=== PATIENT | female | born 1950 | race African-American/Black ===

== ENCOUNTER 2016-06-21 17:46 | Outpatient (CLI) | payer MEDICARE ==
[2016-06-21 19:03] LABS: #Basophils 0.1 thou/uL (0.0-0.2); #Eosinphils 0.1 thou/uL (0.0-0.7); #Lymphocytes 2.2 thou/uL (1.20-3.40); #Monocytes 0.5 thou/uL (0.11-0.59); #Neutrophils 2.4 thou/uL (1.40-6.50); %Basophils 1.2 % (0.0-1.0); %Eosinophils 1.6 % (0.0-10.0); %Lymphocytes 41.7 % (21.0-51.0); %Monocytes 9.6 % (0.0-10.0); %Neutrophils 45.9 % (42.0-75.0); Mean Corpuscular HGB CONC 32.1 g/dL (32.0-36.0); Mean Corpuscular Volume 87.3 fl (81.0-99.0); Mean Platelet Volume 7.3 fL (7.4-10.4); Platelet Count 206 thou/uL (130-400); RBC Distribution Width 13.4 % (11.5-14.5); Red Blood Cell (RBC) Count 4.28 mill/uL (4.20-5.40); White Blood Cell (WBC) Count 5.2 thou/uL (4.8-10.8)
[2016-06-21 19:30] LABS: ALT (SGPT) 11 U/L (0-55); AST (SGOT) 15 U/L (5-34); Alkaline Phosphatase 99 U/L (40-150); Anion Gap 13 mmol/L (10-20); BUN (Urea Nitrogen) 18 mg/dL (9.8-20.1); Bilirubin, Direct 0.2 mg/dL (0.1-0.3); Bilirubin, Total 0.4 mg/dL (0.2-1.2); Calc. Creatinine Clearance 0 mL/min (70-130); Carbon Dioxide 29 mmol/L (23-31); Cardiac Risk 2.2 (Less than 4.5); Chloride 105 mmol/L (98-107); Cholesterol 116 mg/dL (< 200 Desired); Estimated GFR-MDRD 52; Glucose 95 mg/dL (80-115); HDL Cholesterol 52 mg/dL (>60 Neg Risk); LDL Cholesterol, Calculated 46 mg/dL; Potassium 3.9 mmol/L (3.5-5.1); Protein, Total 7.1 g/dL (5.8-8.1); Sodium 143 mmol/L (136-145); Triglycerides 88 mg/dL (Less than 150)
--- NOTE | 2016-06-21 19:39 | RAD ---
THREE VIEWS RIGHT SHOULDER: History: Unknown pain. Comparison: None. FINDINGS: Sclerosis of the greater tuberosity likely due to rotator cuff tendinopathy. Degenerative changes o f the right shoulder joint with osteophyte formation. Near complete fusion of the right AC joint. No dislocation or fracture. IMPRESSION: Degenerative changes as above. MRI may be beneficial. POS: DELMIS
== END 2016-06-21 17:47 | disposition home or self-care (01) ==
LOC: MADLAB 17:46
DX: E78.00 Pure hypercholesterolemia, unspecified (principal); R53.83 Other fatigue; R42 Dizziness and giddiness; I48.91 Unspecified atrial fibrillation; M25.519 Pain in unspecified shoulder; M19.011 Primary osteoarthritis, right shoulder
CPT/HCPCS: 36415; 80048; 80061; 80076; 85025

== ENCOUNTER 2017-10-01 09:45 | Emergency (ER) | payer MEDICARE | END 2017-10-01 11:20 | disposition home or self-care (01) | LOC: MADERS 09:45 | DX: T63.301A Toxic effect of unspecified spider venom, accidental (unintentional), initial encounter (principal) | CPT/HCPCS: 99282 ==

== ENCOUNTER 2018-07-02 12:20 | Emergency (ER) | payer MEDICARE ==
[2018-07-02] MEDS ORDERED: Morphine 10 MG/ML VIAL ONE (12:43)
== END 2018-07-02 14:00 | disposition home or self-care (01) ==
LOC: MADERS 12:20
DX: M54.5 Low back pain (principal); E11.9 Type 2 diabetes mellitus without complications; I10 Essential (primary) hypertension; Z79.899 Other long term (current) drug therapy; Z79.891 Long term (current) use of opiate analgesic
CPT/HCPCS: 96372; J2270

== ENCOUNTER 2018-07-24 00:48 | Emergency (ER) | payer MEDICARE ==
[2018-07-24] MEDS ORDERED: Acetaminophen 325 MG TAB ONE (01:21)
[2018-07-24] MEDS ORDERED: HYDROcodone/Acetaminophen 5/325 mg Tablet ONE (01:21)
[2018-07-24] MEDS ORDERED: Diazepam 5 MG TAB ONE (01:21)
== END 2018-07-24 04:36 | disposition home or self-care (01) ==
LOC: MADERS 00:48
DX: M79.18 Myalgia, other site (principal); E78.5 Hyperlipidemia, unspecified; I10 Essential (primary) hypertension; Z79.899 Other long term (current) drug therapy; Z79.01 Long term (current) use of anticoagulants
CPT/HCPCS: 99282; 99283

== ENCOUNTER 2018-07-24 03:37 | Emergency (ER) | payer MEDICARE | END 2018-07-24 07:06 | disposition home or self-care (01) | LOC: MADERS 03:37 | DX: Z01.30 Encounter for examination of blood pressure without abnormal findings (principal); E78.5 Hyperlipidemia, unspecified; I10 Essential (primary) hypertension; Z79.899 Other long term (current) drug therapy; Z79.01 Long term (current) use of anticoagulants ==

== ENCOUNTER 2019-05-17 16:11 | Emergency (ER) | payer MEDICARE ==
[2019-05-17] MEDS ORDERED: Acetaminophen 500 MG TAB ONE (16:56)
[2019-05-17] MEDS ORDERED: Oseltamivir 75 MG CAP ONE (17:20)
== END 2019-05-17 17:24 | disposition home or self-care (01) ==
LOC: MADERS 16:11
DX: J11.1 Influenza due to unidentified influenza virus with other respiratory manifestations (principal); E78.5 Hyperlipidemia, unspecified; I10 Essential (primary) hypertension; Z79.899 Other long term (current) drug therapy
CPT/HCPCS: 87804; 99283

== ENCOUNTER 2020-02-03 07:03 | Emergency (ER) | payer MEDICARE ==
--- NOTE | 2020-02-03 10:18 | RAD ---
LEFT KNEE RADIOGRAPHS 4 VIEWS: DATE: 02/03/2020. PROVIDED CLINICAL HISTORY: Pain status post injury. FINDINGS: Degenerative changes are seen. Reticulation of the subcutaneous adipose layer at the anterior aspect of the knee suggests bruising or edema. Osteophyte formation is seen about the knee. There is a qu estioned area f cortical irregularity and subjacent linear lucency at the lateral aspect of the later al femoral epicondyle on the externally rotated oblique view that may reflect fracture. No significa nt knee joint capsular distention is evident. IMPRESSION: Nondisplaced fracture versus artifact at the lateral aspect of the distal femur as described. POS: SAL
== END 2020-02-03 08:12 | disposition home or self-care (01) ==
LOC: MADERS 07:03
DX: S80.02XA Contusion of left knee, initial encounter (principal); M25.462 Effusion, left knee; E78.5 Hyperlipidemia, unspecified; E78.00 Pure hypercholesterolemia, unspecified; I10 Essential (primary) hypertension; I48.91 Unspecified atrial fibrillation; Z79.899 Other long term (current) drug therapy; W18.30XA Fall on same level, unspecified, initial encounter

== ENCOUNTER 2020-02-06 12:29 | Emergency (ER) | payer MEDICARE ==
--- NOTE | 2020-02-06 14:18 | CT ---
Exam: Left knee CT without contrast HISTORY: Fall. Trauma. Pain. Abnormal finding on recent left COMPARISON: None Correlation: The left knee radiograph series 02/03/2020 FINDINGS: There is prepatellar soft tissue swelling. There is subcutaneous edema. No evidence of a loculated fl uid collection. There does appear to be a hematoma anterior soft tissues along the inferior aspect of patella.. No evidence of a Roe's cyst. There is a small joint effusion. Fluid is slightly complex suggesting a possible component of hemorrh age. Sagittal images demonstrate a normal-appearing posterior cruciate ligaments. Normal appearing anterio r cruciate ligament is not appreciated. Patella does not appear to be subluxed. There are moderate degenerative change of the patellofemoral compartment. Moderate degenerative change in medial and lateral compartment. Contour of bilateral femoral condyles are maintained. There is prominent osteophyte formation. The medial tibial plateau is maintained. No fracture. There is sclerosis along the lateral tibial plateau compatible with a insufficiency frac ture. There is prominent osteophyte formation. Finding noted on recent radiograph is felt to represent a anterior lateral osteophyte. No acute femoral condyle fractures are appreciated. IMPRESSION: 1. Small amount of hemorrhagic fluid in the joint space. There is a hematoma involving the soft tissu es along the inferior aspect of the patella. 2. Insufficiency fracture involving the lateral tibial plateau. 3. Prominent osteophyte formation at the level of femoral condyles and tibial plateau. Osteophytes ar e favored to represent to the finding noted on recent radiograph.
== END 2020-02-06 14:45 | disposition home or self-care (01) ==
LOC: MADERS 12:29
DX: S82.142A Displaced bicondylar fracture of left tibia, initial encounter for closed fracture (principal); E78.5 Hyperlipidemia, unspecified; E78.00 Pure hypercholesterolemia, unspecified; I48.91 Unspecified atrial fibrillation; I10 Essential (primary) hypertension; I25.10 Atherosclerotic heart disease of native coronary artery without angina pectoris; Z79.891 Long term (current) use of opiate analgesic; Z79.01 Long term (current) use of anticoagulants; Z79.899 Other long term (current) drug therapy; X58.XXXA Exposure to other specified factors, initial encounter; W19.XXXA Unspecified fall, initial encounter

== ENCOUNTER 2020-03-19 12:41 | Emergency (ER) | payer MEDICARE ==
[2020-03-20 08:22] LABS: SARS-CoV-2 MS2 Positive; SARS-CoV-2 N Gene Negative; SARS-CoV-2 S Gene Negative; SARS-CoV-2 by NAA Not Detected (NotDetected); SARS-CoV-2 orf1ab Negative
== END 2020-03-19 13:49 | disposition home or self-care (01) ==
LOC: MADERS 12:41
DX: J02.9 Acute pharyngitis, unspecified (principal); Z20.828 Contact with and (suspected) exposure to other viral communicable diseases; E78.5 Hyperlipidemia, unspecified; E78.00 Pure hypercholesterolemia, unspecified; I10 Essential (primary) hypertension; I48.91 Unspecified atrial fibrillation
CPT/HCPCS: 87635; 99283; U0003

== ENCOUNTER 2020-04-02 16:23 | Emergency (ER) | payer MEDICARE | END 2020-04-02 17:20 | disposition home or self-care (01) | LOC: MADERS 16:23 | DX: Z02.89 Encounter for other administrative examinations (principal); E78.5 Hyperlipidemia, unspecified; E78.00 Pure hypercholesterolemia, unspecified; I48.91 Unspecified atrial fibrillation; I25.10 Atherosclerotic heart disease of native coronary artery without angina pectoris; I10 Essential (primary) hypertension | CPT/HCPCS: 99283 ==

== ENCOUNTER 2022-03-30 19:14 | Emergency (ER) | payer MEDICARE ==
[2022-03-30] MEDS ORDERED: methylPREDNISolone Sod Succ/PF 125 MG/2 ML VIAL ONE (19:44)
[2022-03-30 20:00] LABS: Band 1 % (5-11); Eosinophils 1 % (0-10); Hemoglobin 13.1 g/dL (12.0-16.0); Lymphocytes 12 % (21-51); MDiff Complete? YES; Mean Corpuscular HGB CONC 32.7 g/dL (32.0-36.0); Mean Corpuscular Hemoglobin 28.7 pg (27.0-31.0); Mean Corpuscular Volume 87.9 fl (78.0-98.0); Mean Platelet Volume 6.5 fL (7.4-10.4); Monocytes 8 % (0-10); Neutrophil 78 % (42-75); Platelet Count 223 10x3/uL (130-400); Platelet Morphology Comment Appears Adequate; RBC Distribution Width 12.6 % (11.5-14.5); RBC Morphology Normal; Red Blood Cell (RBC) Count 4.56 mill/uL (4.20-5.40); White Blood Cell (WBC) Count 6.6 10x3/uL (4.8-10.8)
[2022-03-30 20:14] LABS: ALT (SGPT) 11 U/L (8-55); AST (SGOT) 16 U/L (5-34); Albumin 4.3 g/dL (3.4-4.8); Alkaline Phosphatase 77 U/L (40-110); Anion Gap 19 mmol/L (10-20); BUN (Urea Nitrogen) 9 mg/dL (9.8-20.1); Bilirubin, Total 0.6 mg/dL (0.2-1.2); Calc. Creatinine Clearance 0 mL/min (70-130); Calcium 9.1 mg/dL (7.8-10.44); Carbon Dioxide 24 mmol/L (23-31); Chloride 101 mmol/L (98-107); Estimated GFR 47; Globulin 2.9 g/dL (2.4-3.5); Glucose 132 mg/dL (83-110); Potassium 3.5 mmol/L (3.5-5.1); Protein, Total 7.2 g/dL (5.8-8.1); Sodium 140 mmol/L (136-145)
[2022-03-30 20:25] LABS: SARS-CoV-2 NAA Rapid Test DETECTED (NotDetected)
[2022-03-30] MEDS ORDERED: Diltiazem HCl SR 60 mg Capsule PO SCH (22:00)
[2022-03-31] MEDS ORDERED: Acetaminophen 325 MG TAB ONE (01:43)
== END 2022-03-31 07:12 | disposition home or self-care (01) ==
LOC: MADERS 19:14
DX: U07.1 COVID-19 (principal); I48.20 Chronic atrial fibrillation, unspecified; E78.00 Pure hypercholesterolemia, unspecified; I10 Essential (primary) hypertension; I25.10 Atherosclerotic heart disease of native coronary artery without angina pectoris; Z79.899 Other long term (current) drug therapy
CPT/HCPCS: 71045; 80053; 83605; 83880; 84484; 85025; 93005; 96374; 96375; J2930; J7620

== ENCOUNTER 2022-04-05 15:38 | Emergency (ER) | payer MEDICARE ==
[2022-04-05 16:30] LABS: Hemoglobin 13.8 g/dL (12.0-16.0); Lymphocytes 38 % (21-51); MDiff Complete? YES; Mean Corpuscular HGB CONC 32.4 g/dL (32.0-36.0); Mean Corpuscular Hemoglobin 28.1 pg (27.0-31.0); Mean Corpuscular Volume 86.6 fl (78.0-98.0); Mean Platelet Volume 6.7 fL (7.4-10.4); Monocytes 3 % (0-10); Neutrophil 59 % (42-75); Platelet Count 216 10x3/uL (130-400); RBC Distribution Width 11.9 % (11.5-14.5); Red Blood Cell (RBC) Count 4.91 mill/uL (4.20-5.40); White Blood Cell (WBC) Count 5.6 10x3/uL (4.8-10.8)
[2022-04-05 16:36] LABS: ALT (SGPT) 13 U/L (8-55); AST (SGOT) 18 U/L (5-34); Albumin 3.9 g/dL (3.4-4.8); Alkaline Phosphatase 57 U/L (40-110); Anion Gap 13 mmol/L (10-20); BUN (Urea Nitrogen) 11 mg/dL (9.8-20.1); Bilirubin, Total 0.8 mg/dL (0.2-1.2); Calc. Creatinine Clearance 0 mL/min (70-130); Calcium 9.3 mg/dL (7.8-10.44); Carbon Dioxide 30 mmol/L (23-31); Chloride 99 mmol/L (98-107); Estimated GFR 36; Globulin 3.1 g/dL (2.4-3.5); Glucose 132 mg/dL (83-110); Magnesium 1.9 mg/dL (1.6-2.6); Potassium 2.9 mmol/L (3.5-5.1); Sodium 139 mmol/L (136-145)
[2022-04-05] MEDS ORDERED: Potassium Chloride 20 MEQ TAB ONE (17:06)
== END 2022-04-05 18:15 | disposition home or self-care (01) ==
LOC: MADERS 15:38
DX: R42 Dizziness and giddiness (principal); E78.5 Hyperlipidemia, unspecified; E78.00 Pure hypercholesterolemia, unspecified; I10 Essential (primary) hypertension; I48.91 Unspecified atrial fibrillation; I25.10 Atherosclerotic heart disease of native coronary artery without angina pectoris; Z79.01 Long term (current) use of anticoagulants
CPT/HCPCS: 36415; 80053; 83605; 83735; 84443; 85025; 87040; 93005; 94760

== ENCOUNTER 2023-01-14 20:24 | Emergency (ER) | payer MEDICARE ==
[2023-01-14] MEDS ORDERED: Aspirin Chewable 81 MG TAB ONE (20:53)
[2023-01-14 21:08] LABS: Band 2 % (5-11); Hematocrit 35.8 % (36.0-47.0); Hemoglobin 11.8 g/dL (12.0-16.0); Lymphocytes 42 % (21-51); MDiff Complete? YES; Mean Corpuscular HGB CONC 32.8 g/dL (32.0-36.0); Mean Corpuscular Hemoglobin 29.2 pg (27.0-31.0); Mean Corpuscular Volume 88.8 fl (78.0-98.0); Mean Platelet Volume 7.8 fL (7.4-10.4); Monocytes 10 % (0-10); Neutrophil 46 % (42-75); Platelet Adequacy Comment Appears Adequate; Platelet Count 227 10x3/uL (130-400); RBC Distribution Width 14.1 % (11.5-14.5); Red Blood Cell (RBC) Count 4.03 mill/uL (4.20-5.40); White Blood Cell (WBC) Count 6.1 10x3/uL (4.8-10.8)
[2023-01-14 21:14] LABS: ALT (SGPT) 9 U/L (8-55); AST (SGOT) 13 U/L (5-34); Albumin 3.9 g/dL (3.4-4.8); Alkaline Phosphatase 77 U/L (40-110); Anion Gap 17 mmol/L (10-20); BUN (Urea Nitrogen) 11 mg/dL (9.8-20.1); Bilirubin, Total 0.5 mg/dL (0.2-1.2); Calc. Creatinine Clearance 0 mL/min (70-130); Calcium 9.2 mg/dL (7.8-10.44); Carbon Dioxide 24 mmol/L (23-31); Chloride 106 mmol/L (98-107); Estimated GFR 40; Globulin 2.7 g/dL (2.4-3.5); Glucose 112 mg/dL (83-110); Magnesium 2.1 mg/dL (1.6-2.6); Potassium 3.9 mmol/L (3.5-5.1); Protein, Total 6.6 g/dL (5.8-8.1); Sodium 143 mmol/L (136-145)
[2023-01-14 21:16] LABS: Troponin I Less than 0.010 ng/mL (< 0.028)
[2023-01-14 23:48] LABS: Troponin I Less than 0.010 ng/mL (< 0.028)
== END 2023-01-15 00:26 | disposition home or self-care (01) ==
LOC: MADERS 20:24
DX: M25.512 Pain in left shoulder (principal); E78.00 Pure hypercholesterolemia, unspecified; I10 Essential (primary) hypertension; Z79.899 Other long term (current) drug therapy
CPT/HCPCS: 71045; 80053; 83735; 83880; 84484; 85025; 93005

== ENCOUNTER 2025-02-06 21:34 | Emergency (ER) | payer MEDICARE ==
[2025-02-06] MEDS ORDERED: Potassium Chloride 20 MEQ (100 mL) BAG ONE (22:02)
[2025-02-06 22:13] LABS: Hematocrit 36.2 % (36.0-47.0); Hemoglobin 11.4 g/dL (12.0-16.0); Mean Corpuscular Hemoglobin 26.9 pg (27.0-31.0); Mean Corpuscular Volume 85.5 fl (78.0-98.0); Platelet Count 240 10x3/uL (130-400); Red Blood Cell (RBC) Count 4.23 mill/uL (4.20-5.40); White Blood Cell (WBC) Count 5.2 10x3/uL (4.8-10.8)
[2025-02-06 22:15] LABS: MDiff Complete? YES
[2025-02-06 22:33] LABS: ALT (SGPT) 9 U/L (Less than 34); AST (SGOT) 18 U/L (11-34); Albumin 4.0 g/dL (3.1-4.5); Alkaline Phosphatase 88 U/L (40-110); Anion Gap 21 mmol/L (10-20); BUN (Urea Nitrogen) 15 mg/dL (9.8-20.1); Bilirubin, Total 0.9 mg/dL (0.3-1.2); Calc. Creatinine Clearance 0 mL/min (70-130); Calcium 9.2 mg/dL (7.8-10.44); Carbon Dioxide 36 mmol/L (23-31); Chloride 85 mmol/L (98-107); Globulin 3.1 g/dL (2.4-3.5); Glucose 132 mg/dL (83-110); Magnesium 2.0 mg/dL (1.6-2.6); Sodium 140 mmol/L (136-145)
[2025-02-06 22:41] LABS: Potassium 1.9 mmol/L (3.5-5.1)
[2025-02-07 00:14] LABS: Potassium 2.5 mmol/L (3.5-5.1)
== END 2025-02-07 01:04 | disposition short-term general hospital (02) ==
LOC: MADERS 21:34
DX: E87.6 Hypokalemia (principal); N17.9 Acute kidney failure, unspecified; I11.0 Hypertensive heart disease with heart failure; I50.9 Heart failure, unspecified; R42 Dizziness and giddiness; R29.700 NIHSS score 0; I25.10 Atherosclerotic heart disease of native coronary artery without angina pectoris; E78.00 Pure hypercholesterolemia, unspecified; I48.91 Unspecified atrial fibrillation; Z79.51 Long term (current) use of inhaled steroids; Z79.82 Long term (current) use of aspirin; Z79.899 Other long term (current) drug therapy
CPT/HCPCS: 80053; 83735; 85025; 93005; 94760; 96365; 96366; J3480